=== PATIENT | female | born 1930 | race Caucasian/White ===

== ENCOUNTER → 2019-08-20 | Outpatient (CLI) | payer MEDICARE, BC ==
--- NOTE | 2019-08-20 15:42 | US ---
EXAMINATION TYPE: US venous doppler duplex LE LT DATE OF EXAM: 08/20/2019 3:32 PM COMPARISON: NONE CLINICAL HISTORY: R60.0 EDEMA. Left leg pain and swelling x 1 week SIDE PERFORMED: Left TECHNIQUE: The lower extremity deep venous system is examined utilizing real time linear array sonog yarely with graded compression, doppler sonography and color-flow sonography. VESSELS IMAGED: External Iliac Vein (EIV) Common Femoral Vein Deep Femoral Vein Greater Saphenous Vein * Femoral Vein Popliteal Vein Small Saphenous Vein * Proximal Calf Veins (* superficial vessels) Grayscale, color doppler, spectral doppler imaging performed of the deep veins of the left lower extr emity. There is normal flow, compressibility, vascular waveforms. Left Leg: Appears negative for DVT IMPRESSION: No sonographic evidence of deep venous thrombosis within the left lower extremity.
[2019-08-20 16:43] LABS: Albumin 4.5 g/dL (3.5-5.0); Potassium 5.5 mmol/L (3.5-5.1); Total Bilirubin 0.3 mg/dL (0.2-1.3); Total Protein 8.3 g/dL (6.3-8.2); Uric Acid 5.6 mg/dL (3.7-7.4)
[2019-08-20 19:04] LABS: Basophils # (A) 0.2 k/uL (0-0.2); Basophils % (A) 3 %; Eosinophils # (A) 0.1 k/uL (0-0.7); Eosinophils % (A) 2 %; HCT 36.5 % (34.0-46.0); HGB 11.2 gm/dL (11.4-16.0); Lymphocytes # (A) 1.3 k/uL (1.0-4.8); Lymphocytes % (A) 17 %; MCH 30.1 pg (25.0-35.0); MCHC 30.7 g/dL (31.0-37.0); MCV 98.1 fL (80.0-100.0); Monocytes # (A) 0.7 k/uL (0-1.0); Monocytes % (A) 9 %; Neutrophils # (A) 5.1 k/uL (1.3-7.7); Neutrophils % (A) 68 %; Platelet Count 252 k/uL (150-450); RBC 3.73 m/uL (3.80-5.40); RDW 13.9 % (11.5-15.5); WBC 7.5 k/uL (3.8-10.6)
== END | disposition home or self-care (01) ==
LOC: RADUSWWP 14:48
PROVIDERS: ATTEND Family Medicine
DX: R60.0 Localized edema (principal)
CPT/HCPCS: 80053; 83880; 84550; 85025

== ENCOUNTER → 2019-10-03 | Outpatient (CLI) | payer MEDICARE, BC ==
[2019-10-03 09:14] LABS: Basophils % (A) 1 %; Eosinophils # (A) 0.2 k/uL (0-0.7); Eosinophils % (A) 3 %; HCT 37.6 % (34.0-46.0); HGB 12.3 gm/dL (11.4-16.0); Lymphocytes # (A) 1.6 k/uL (1.0-4.8); Lymphocytes % (A) 24 %; MCH 31.5 pg (25.0-35.0); MCHC 32.6 g/dL (31.0-37.0); MCV 96.6 fL (80.0-100.0); Mean Platelet Volume 6.7; Monocytes # (A) 0.5 k/uL (0-1.0); Monocytes % (A) 7 %; Neutrophils # (A) 4.2 k/uL (1.3-7.7); Neutrophils % (A) 63 %; Platelet Count 273 k/uL (150-450); RDW 13.7 % (11.5-15.5); WBC 6.7 k/uL (3.8-10.6)
[2019-10-03 09:30] LABS: Appearance,Urine Clear (Clear); Bilirubin,Urine Negative (Negative); Blood,Urine Negative (Negative); Color,Urine Light Yellow; Glucose,Urine (UA) Negative (Negative); Ketones,Urine Negative (Negative); Leukocyte Esterase,Urine Moderate (Negative); Nitrite,Urine Negative (Negative); Protein,Urine Negative (Negative); RBC,Urine 1 /hpf (0-5); Specific Gravity,Urine 1.007 (1.001-1.035); Urobilinogen,Urine <2.0 mg/dL (<2.0); WBC,Urine 18 /hpf (0-5)
[2019-10-03 17:23] LABS: % Iron Saturation 31.79 (12.00-45.00); African American GFR (CKD) 35.9 (60.0-200.0); Albumin 4.4 g/dL (3.80-4.90); Albumin/Globulin Ratio 1.57 (1.60-3.17); Anion Gap 7.3 mmol/L (4.00-12.00); Calcium 9.9 mg/dL (8.7-10.3); Carbon Dioxide 28.7 mmol/L (21.6-31.8); Chol/HDL Ratio 2.45; Globulin 2.8 g/dL (1.6-3.3); LDL Cholesterol,Calculated 68.2 mg/dL (0.0-131.0); Magnesium 1.9 mg/dL (1.5-2.4); Phosphorus 4.1 mg/dL (2.4-5.1); Total Bilirubin 0.5 mg/dL (0.3-1.2); Total Protein 7.2 g/dL (6.2-8.2); Uric Acid 6.1 mg/dL (2.9-7.7); VLDL Calculation 25.8 mg/dL (5.00-40.00)
[2019-10-03 17:35] LABS: Ferritin 486.4 ng/mL (10.0-291.0)
== END | disposition home or self-care (01) ==
LOC: LABWHC1 08:00
PROVIDERS: ATTEND Nurse Practitioner Family
DX: E78.2 Mixed hyperlipidemia (principal); E11.42 Type 2 diabetes mellitus with diabetic polyneuropathy; R79.89 Other specified abnormal findings of blood chemistry; E03.9 Hypothyroidism, unspecified; D63.1 Anemia in chronic kidney disease; N18.3 Chronic kidney disease, stage 3 (moderate); M10.9 Gout, unspecified; E55.9 Vitamin D deficiency, unspecified
CPT/HCPCS: 36415; 80053; 80061; 81001; 82306; 82728; 83540; 83550; 83735; 83970; 84100; 84443; 84550; 85025

== ENCOUNTER 2020-07-23 15:18 | Emergency (ER) | payer MEDICARE, BC ==
[2020-07-23 15:25] VITALS: RESP 16; TEMP 97
[2020-07-23] MEDS ORDERED: SODIUM CHLORIDE 0.9% 500 ML 500 ML IV STA (15:55)
--- NOTE | 2020-07-23 16:23 | ED ---
General Adult HPI - General Chief complaint: Weakness Stated complaint: Weakness Time Seen by Provider: 07/23/20 15:34 Source: patient, EMS, RN notes reviewed, old records reviewed Mode of arrival: EMS Limitations: no limitations - History of Present Illness Initial comments: 89-year-old female presents with generalized weakness, syncope. Patient was at home, she states she felt unwell, unable to exactly explain these details. Denied chest pain. Denied dyspnea. She states she did fall and was unconscious for several minutes. She had loss of bowel control at this time. There was no witnessed seizure activity. She was not postictal. She denies any complaints the time my evaluation. She states she is feeling better. She reported some mild preceding crampy abdominal pain. No fever. No cough. No dyspnea. - Related Data Home Medications Medication Instructions Recorded Confirmed Atorvastatin Calcium [Lipitor] 10/05/15 10/05/15 Biotin 10/05/15 10/05/15 Calcium Carbonate [Calcium] 10/05/15 10/05/15 Gabapentin [Neurontin] 10/05/15 10/05/15 Lactobacillus Acidophilus 10/05/15 10/05/15 [Acidophilus] Multivitamins, Thera [Multivitamin] 10/05/15 10/05/15 Omeprazole [PriLOSEC] 10/05/15 10/05/15 Thyroid, Pork [[place] Thyroid] 10/05/15 10/05/15 lisinopriL [Zestril] 10/05/15 10/05/15 metFORMIN HCL [Glucophage] 10/05/15 10/05/15 Allergies Allergy/AdvReac Type Severity Reaction Status Date / Time sulfadiazine Allergy Mild Unknown Verified 10/05/15 00:31 Review of Systems ROS Statement: Those systems with pertinent positive or pertinent negative responses have been documented in the HPI. ROS Other: All systems not noted in ROS Statement are negative. Past Medical History Past Medical History: Diabetes Mellitus, GERD/Reflux, Hypertension History of Any Multi-Drug Resistant Organisms: None Reported Past Surgical History: No Surgical Hx Reported Past Psychological History: No Psychological Hx Reported Smoking Status: Never smoker Past Alcohol Use History: Occasional Past Drug Use History: None Reported General Exam Limitations: no limitations General appearance: alert, in no apparent distress Head exam: Present: atraumatic, normocephalic Eye exam: Present: normal appearance, PERRL ENT exam: Present: mucous membranes dry Neck exam: Present: normal inspection. Absent: tenderness, meningismus Respiratory exam: Present: normal lung sounds bilaterally. Absent: respiratory distress, wheezes Cardiovascular Exam: Present: regular rate, normal rhythm GI/Abdominal exam: Present: soft. Absent: distended, tenderness, guarding Extremities exam: Present: normal inspection, normal capillary refill. Absent: pedal edema Neurological exam: Present: alert, oriented X3, CN II-XII intact. Absent: motor sensory deficit Psychiatric exam: Present: normal affect, normal mood Skin exam: Present: warm, dry, intact. Absent: cyanosis, diaphoretic Course Vital Signs 07/23/20 07/23/20 15:19 17:52 Temperature 97.0 F L Pulse Rate 72 87 Respiratory 16 16 Rate Blood Pressure 143/63 137/81 O2 Sat by Pulse 98 99 Oximetry EKG Findings - EKG Comments: EKG Findings:: EKG: Sinus rhythm with first-degree AV block, QRS is wide, nonspecific intraventricular block, rate of 66, CO interval 212, QRS duration 12 6, QTC 434, no ST segment elevation, ST segment depression in V6 and this EKG is unchanged compared to EKG October 2015. Medical Decision Making - Medical Decision Making 89-year-old female presenting with syncopal episode. Patient's is in sinus rhythm. Initial blood pressure stable. She has a nonfocal neurologic exam, no external signs of trauma. Workup was initiated, she has a chest x-ray which is negative for acute cortical varices, x-ray of the abdomen negative for obstruction or intraperitoneal free air. She has mild hyperkalemia 5.6, elevated serum creatinine 1.27. Troponin negative. Urinalysis is pending, has not been collected at this time. I did prefer that this patient be admitted for telemetry, hydration, repeat electrolytes, she does not want to stay in the hospital at this time. Her son who is in the room agrees that she would prefer to be discharged home and will monitor closely at home. She will drink plenty fluids. She will follow-up on Saturday with her traffic attendant for repeat laboratory testing. The EKG is changed from prior although there is no recent for comparison most recent was in 2014. Again my preference would be that the patient stays but she wishes to be discharged. - Lab Data Result diagrams: 07/23/20 16:01 07/23/20 16:01 Lab Results 07/23/20 07/23/20 07/23/20 Range/Units 16: 16: 16:01 WBC 10.4 (3.8-10.6) k/uL RBC 3.98 (3.80-5.40) m/uL Hgb 12.1 (11.4-16.0) gm/dL Hct 38.5 (34.0-46.0) % MCV 96.8 (80.0-100.0) fL MCH 30.3 (25.0-35.0) pg MCHC 31.3 (31.0-37.0) g/dL RDW 13.6 (11.5-15.5) % Plt Count 288 (150-450) k/uL Neutrophils % 80 % Lymphocytes % 11 % Monocytes % 8 % Eosinophils % 1 % Basophils % 0 % Neutrophils # 8.3 H (1.3-7.7) k/uL Lymphocytes # 1.1 (1.0-4.8) k/uL Monocytes # 0.8 (0-1.0) k/uL Eosinophils # 0.1 (0-0.7) k/uL Basophils # 0.0 (0-0.2) k/uL PT 9.8 (9.0-12.0) sec INR 0.9 (<1.2) APTT 22.0 (22.0-30.0) sec Sodium 130 L (137-145) mmol/L Potassium 5.6 H (3.5-5.1) mmol/L Chloride 98 (98-107) mmol/L Carbon Dioxide 25 (22-30) mmol/L Anion Gap 7 mmol/L BUN 32 H (7-17) mg/dL Creatinine 1.27 H (0.52-1.04) mg/dL Est GFR (CKD-EPI)AfAm 44 (>60 ml/min/1.73 sqM) Est GFR (CKD-EPI)NonAf 38 (>60 ml/min/1.73 sqM) Glucose 231 H (74-99) mg/dL Calcium 9.1 (8.4-10.2) mg/dL Magnesium 2.0 (1.6-2.3) mg/dL Total Bilirubin 0.4 (0.2-1.3) mg/dL AST 31 (14-36) U/L ALT 27 (4-34) U/L Alkaline Phosphatase 84 (38-126) U/L Troponin I (0.000-0.034) ng/mL Total Protein 7.0 (6.3-8.2) g/dL Albumin 4.0 (3.5-5.0) g/dL 07/23/20 Range/Units 16:01 WBC (3.8-10.6) k/uL RBC (3.80-5.40) m/uL Hgb (11.4-16.0) gm/dL Hct (34.0-46.0) % MCV (80.0-100.0) fL MCH (25.0-35.0) pg MCHC (31.0-37.0) g/dL RDW (11.5-15.5) % Plt Count (150-450) k/uL Neutrophils % % Lymphocytes % % Monocytes % % Eosinophils % % Basophils % % Neutrophils # (1.3-7.7) k/uL Lymphocytes # (1.0-4.8) k/uL Monocytes # (0-1.0) k/uL Eosinophils # (0-0.7) k/uL Basophils # (0-0.2) k/uL PT (9.0-12.0) sec INR (<1.2) APTT (22.0-30.0) sec Sodium (137-145) mmol/L Potassium (3.5-5.1) mmol/L Chloride (98-107) mmol/L Carbon Dioxide (22-30) mmol/L Anion Gap mmol/L BUN (7-17) mg/dL Creatinine (0.52-1.04) mg/dL Est GFR (CKD-EPI)AfAm (>60 ml/min/1.73 sqM) Est GFR (CKD-EPI)NonAf (>60 ml/min/1.73 sqM) Glucose (74-99) mg/dL Calcium (8.4-10.2) mg/dL Magnesium (1.6-2.3) mg/dL Total Bilirubin (0.2-1.3) mg/dL AST (14-36) U/L ALT (4-34) U/L Alkaline Phosphatase (38-126) U/L Troponin I <0.012 (0.000-0.034) ng/mL Total Protein (6.3-8.2) g/dL Albumin (3.5-5.0) g/dL Disposition Clinical Impression: Hyponatremia, Dehydration, Hyperkalemia Disposition: ADMITTED IP TO THIS [facility] Condition: Stable Instructions (If sedation given, give patient instructions): Dehydration (ED), Hyperkalemia (ED) Is patient prescribed a controlled substance at d/c from ED?: No Referrals: Rissa Collier III, MD [Primary Care Provider] - 1-2 days Flaca Villegas MD [STAFF PHYSICIAN] - 1-2 days Time of Disposition: 17:55 Decision to Admit Reason: Admit from EC Decision Date: 07/23/20 Decision Time: 17:48
[2020-07-23 16:24] LABS: Basophils % (A) 0 %; Eosinophils # (A) 0.1 k/uL (0-0.7); Eosinophils % (A) 1 %; HCT 38.5 % (34.0-46.0); HGB 12.1 gm/dL (11.4-16.0); Lymphocytes # (A) 1.1 k/uL (1.0-4.8); Lymphocytes % (A) 11 %; MCH 30.3 pg (25.0-35.0); MCHC 31.3 g/dL (31.0-37.0); MCV 96.8 fL (80.0-100.0); Monocytes # (A) 0.8 k/uL (0-1.0); Monocytes % (A) 8 %; Neutrophils # (A) 8.3 k/uL (1.3-7.7); Neutrophils % (A) 80 %; Platelet Count 288 k/uL (150-450); RBC 3.98 m/uL (3.80-5.40); RDW 13.6 % (11.5-15.5); WBC 10.4 k/uL (3.8-10.6)
[2020-07-23 16:30] LABS: Calcium 9.1 mg/dL (8.4-10.2); Potassium 5.6 mmol/L (3.5-5.1); Total Bilirubin 0.4 mg/dL (0.2-1.3)
[2020-07-23 16:40] LABS: INR 0.9 (<1.2); Prothrombin Time 9.8 sec (9.0-12.0)
[2020-07-23] MEDS ORDERED: SODIUM CHLORIDE 0.9% 1,000 ML IV SCH (16:45)
--- NOTE | 2020-07-23 16:55 | XR ---
EXAMINATION TYPE: XR chest 2V DATE OF EXAM: 07/23/2020 COMPARISON: Chest x-ray November 24, 2013 HISTORY: Syncope and weakness. TECHNIQUE: Frontal and lateral views of the chest are obtained. FINDINGS: There is background chronic parenchymal change without suspicious new focal air space opac ity, pleural effusion, or pneumothorax seen. The cardiac silhouette size is stable and mildly enlarg ed. The osseous structures are demineralized. IMPRESSION: Chronic changes and mild cardiomegaly without acute pulmonary process. No significant ch arsalan from prior.
--- NOTE | 2020-07-23 16:56 | XR ---
EXAMINATION TYPE: XR KUB DATE OF EXAM: 07/23/2020 4:37 PM CLINICAL HISTORY: Abdominal pain and syncope. TECHNIQUE: Two supine KUB images of the abdomen are obtained. COMPARISON: Abdominal x-ray fibroid 23/06/2014. FINDINGS: Scattered gas is seen in non-distended small and large bowel loops. Calcified fibroid right pelvis redemonstrated. Spurring in the upper lumbar spine again seen. Lung bases not included. IMPRESSION: Persistent overall nonobstructive bowel gas pattern.
[2020-07-23 18:18] VITALS: BP 123/85; PULSE 86
== END 2020-07-23 18:16 | disposition other institution (70) ==
LOC: EC 15:18
DX: E87.1 Hypo-osmolality and hyponatremia (principal); E86.0 Dehydration; E87.5 Hyperkalemia; R55 Syncope and collapse; R79.89 Other specified abnormal findings of blood chemistry; I10 Essential (primary) hypertension; E11.9 Type 2 diabetes mellitus without complications; K21.9 Gastro-esophageal reflux disease without esophagitis; Z79.84 Long term (current) use of oral hypoglycemic drugs; Z79.899 Other long term (current) drug therapy; Z79.890 Hormone replacement therapy; Z88.2 Allergy status to sulfonamides
CPT/HCPCS: 36415; 71046; 74018; 80053; 83735; 84484; 85025; 85610; 85730; 93005; 96360; 99285

== ENCOUNTER 2020-09-14 11:28 | Emergency (ER) | payer MEDICARE, BC ==
[2020-09-14 11:36] VITALS: TEMP 98.1
[2020-09-14] MEDS ORDERED: SODIUM CHLORIDE 0.9% 1,000 ML IV STA (12:52)
[2020-09-14] MEDS ORDERED: SODIUM CHLORIDE 0.9% 500 ML 500 ML IV STA ×2 (12:52→14:20)
--- NOTE | 2020-09-14 12:55 | ED ---
Weakness HPI - General Chief complaint: Weakness Stated complaint: fatigue/blurred vision/dizziness Time Seen by Provider: 09/14/20 12:35 Source: patient, RN notes reviewed Mode of arrival: ambulatory Limitations: no limitations - History of Present Illness Initial comments: This is a 10-year-old female history of type 2 diabetes and peripheral neuropathy of unknown etiology who is here today with complaints of generalized weakness and fatigue she feels sleepy and tired all time he does also decreased oral intake. But she denies any fevers chills nausea vomiting sweats cough or phlegm production. She has been getting immunotherapy at her neurologist's office. She complains also some right-sided neck pain but this is chronic and preceded getting the immunotherapy. No focal weakness she does have at my exam no complaints of headache. MD Complaint: generalized weakness - Related Data Home Medications Medication Instructions Recorded Confirmed Atorvastatin Calcium [Lipitor] 1 tab PO DAILY 10/05/15 09/14/20 Omeprazole [PriLOSEC] 20 mg PO DAILY 10/05/15 09/14/20 lisinopriL [Zestril] 2.5 mg PO Q48H 10/05/15 09/14/20 Allopurinol [Zyloprim] 100 mg PO DAILY 09/06/20 09/14/20 Ferrous Sulfate [Iron] 325 mg PO DAILY 09/06/20 09/14/20 Gabapentin [Neurontin] 800 mg PO TID 09/06/20 09/14/20 Latanoprost/Pf [Latanoprost 0.005% 1 drop BOTH EYES HS 09/06/20 09/14/20 Eye Drop] Levothyroxine Sodium [Levoxyl] 75 mcg PO DAILY 09/06/20 09/14/20 Magnesium Oxide [Mag-Ox] 500 mg PO DAILY 09/06/20 09/14/20 Multivit-Min/FA/Lycopen/Lutein 1 tab PO DAILY 09/06/20 09/14/20 [Centrum Silver Tablet] glipiZIDE [Glucotrol] 0.5 tab PO DAILY 09/06/20 09/14/20 Focus Macular Pro 1 tab PO DAILY 09/14/20 09/14/20 Allergies Allergy/AdvReac Type Severity Reaction Status Date / Time sulfadiazine Allergy Mild Unknown Verified 09/14/20 13:31 Sulfa (Sulfonamide Allergy Unknown Verified 09/14/20 13:31 Antibiotics) Review of Systems ROS Statement: Those systems with pertinent positive or pertinent negative responses have been documented in the HPI. ROS Other: All systems not noted in ROS Statement are negative. Past Medical History Past Medical History: Diabetes Mellitus, GERD/Reflux, Hypertension History of Any Multi-Drug Resistant Organisms: None Reported Past Surgical History: No Surgical Hx Reported Past Psychological History: No Psychological Hx Reported Smoking Status: Former smoker Past Alcohol Use History: None Reported Past Drug Use History: None Reported General Exam - General Exam Comments Initial Comments: this is a well-developed asthenic appearing female who is awake alert oriented 3 Limitations: no limitations General appearance: alert, in no apparent distress Head exam: Present: atraumatic, normocephalic, normal inspection Eye exam: Present: normal appearance, PERRL, EOMI. Absent: scleral icterus, conjunctival injection, periorbital swelling ENT exam: Present: mucous membranes dry Neck exam: Present: normal inspection, tenderness, full ROM, other (no stridor JVD or bruits there is some slight tenderness palpation over the posterior lateral aspect of the right side of the neck over the trapezius muscle no midline tenderness no step-off no crepitation). Absent: meningismus, lymphadenopathy Respiratory exam: Present: normal lung sounds bilaterally. Absent: respiratory distress, wheezes, rales, rhonchi, stridor Cardiovascular Exam: Present: regular rate, normal rhythm, normal heart sounds. Absent: systolic murmur, diastolic murmur, rubs, gallop, clicks GI/Abdominal exam: Present: soft, normal bowel sounds. Absent: distended, tenderness, guarding, rebound, rigid, bruit, pulsatile mass Extremities exam: Present: normal inspection, full ROM, normal capillary refill. Absent: tenderness, pedal edema, joint swelling, calf tenderness Back exam: Present: normal inspection Neurological exam: Present: alert, oriented X3, CN II-XII intact Psychiatric exam: Present: normal affect, normal mood Skin exam: Present: warm, dry, intact, normal color. Absent: rash Course Vital Signs 09/14/20 09/14/20 11:30 15:42 Temperature 98.1 F Pulse Rate 80 77 Respiratory 18 20 Rate Blood Pressure 173/72 O2 Sat by Pulse 100 98 Oximetry - Reevaluation(s) Reevaluation #1: 09/14/20 16:24 Reevaluation the patient feels improved after IV hydration. EKG Findings - EKG Results: EKG: interpreted by ELIJAHD, sinus rhythm (sinus rhythm of 74. Interval 206 QRS duration 122 QT since QTC 384/426 bundle-branch block pattern) Medical Decision Making - Medical Decision Making patient was able ambulate without difficulty she feels improved after hydration she'll be discharged the presentation is consistent with dehydrationdoes them straight some mild hyponatremia. She is a follow-up with her doctor return when necessary - Lab Data Result diagrams: 09/14/20 12:57 09/14/20 12:57 Lab Results 09/14/20 09/14/20 09/14/20 Range/Units 12:57 12:57 12:57 WBC 7.2 (3.8-10.6) k/uL RBC 3.27 L (3.80-5.40) m/uL Hgb 10.8 L (11.4-16.0) gm/dL Hct 29.5 L (34.0-46.0) % MCV 90.4 D (80.0-100.0) fL MCH 32.9 (25.0-35.0) pg MCHC 36.4 (31.0-37.0) g/dL RDW 14.5 (11.5-15.5) % Plt Count 225 (150-450) k/uL MPV 7.5 Neutrophils % 67 % Lymphocytes % 18 % Monocytes % 13 % Eosinophils % 1 % Basophils % 1 % Neutrophils # 4.8 (1.3-7.7) k/uL Lymphocytes # 1.3 (1.0-4.8) k/uL Monocytes # 0.9 (0-1.0) k/uL Eosinophils # 0.0 (0-0.7) k/uL Basophils # 0.1 (0-0.2) k/uL Hyperchromasia Slight Poikilocytosis Slight Sodium 128 L (137-145) mmol/L Potassium 5.3 H (3.5-5.1) mmol/L Chloride 95 L (98-107) mmol/L Carbon Dioxide 25 (22-30) mmol/L Anion Gap 8 mmol/L BUN 36 H (7-17) mg/dL Creatinine 1.29 H (0.52-1.04) mg/dL Est GFR (CKD-EPI)AfAm 43 (>60 ml/min/1.73 sqM) Est GFR (CKD-EPI)NonAf 37 (>60 ml/min/1.73 sqM) Glucose 146 H (74-99) mg/dL Plasma Lactic Acid Franky 1.1 (0.7-2.0) mmol/L Calcium 9.7 (8.4-10.2) mg/dL Magnesium 2.0 (1.6-2.3) mg/dL Total Bilirubin 1.1 (0.2-1.3) mg/dL AST 49 H (14-36) U/L ALT 37 H (4-34) U/L Alkaline Phosphatase 106 (38-126) U/L Creatine Kinase 52 (30-135) U/L Troponin I (0.000-0.034) ng/mL NT-Pro-B Natriuret Pep pg/mL Total Protein 9.6 H (6.3-8.2) g/dL Albumin 4.4 (3.5-5.0) g/dL Lipase 214 (23-300) U/L TSH 1.100 (0.465-4.680) mIU/L Urine Color Urine Appearance (Clear) Urine pH (5.0-8.0) Ur Specific [place] (1.001-1.035) Urine Protein (Negative) Urine Glucose (UA) (Negative) Urine Ketones (Negative) Urine Blood (Negative) Urine Nitrite (Negative) Urine Bilirubin (Negative) Urine Urobilinogen (<2.0) mg/dL Ur Leukocyte Esterase (Negative) Urine RBC (0-5) /hpf Urine WBC (0-5) /hpf Urine Bacteria (None) /hpf Urine Mucus (None) /hpf 09/14/20 09/14/20 09/14/20 Range/Units 12:57 12:57 12:57 WBC (3.8-10.6) k/uL RBC (3.80-5.40) m/uL Hgb (11.4-16.0) gm/dL Hct (34.0-46.0) % MCV (80.0-100.0) fL MCH (25.0-35.0) pg MCHC (31.0-37.0) g/dL RDW (11.5-15.5) % Plt Count (150-450) k/uL MPV Neutrophils % % Lymphocytes % % Monocytes % % Eosinophils % % Basophils % % Neutrophils # (1.3-7.7) k/uL Lymphocytes # (1.0-4.8) k/uL Monocytes # (0-1.0) k/uL Eosinophils # (0-0.7) k/uL Basophils # (0-0.2) k/uL Hyperchromasia Poikilocytosis Sodium (137-145) mmol/L Potassium (3.5-5.1) mmol/L Chloride (98-107) mmol/L Carbon Dioxide (22-30) mmol/L Anion Gap mmol/L BUN (7-17) mg/dL Creatinine (0.52-1.04) mg/dL Est GFR (CKD-EPI)AfAm (>60 ml/min/1.73 sqM) Est GFR (CKD-EPI)NonAf (>60 ml/min/1.73 sqM) Glucose (74-99) mg/dL Plasma Lactic Acid Franky (0.7-2.0) mmol/L Calcium (8.4-10.2) mg/dL Magnesium (1.6-2.3) mg/dL Total Bilirubin (0.2-1.3) mg/dL AST (14-36) U/L ALT (4-34) U/L Alkaline Phosphatase (38-126) U/L Creatine Kinase (30-135) U/L Troponin I <0.012 (0.000-0.034) ng/mL NT-Pro-B Natriuret Pep 108 pg/mL Total Protein (6.3-8.2) g/dL Albumin (3.5-5.0) g/dL Lipase (23-300) U/L TSH (0.465-4.680) mIU/L Urine Color Light Yellow Urine Appearance Clear (Clear) Urine pH 5.5 (5.0-8.0) Ur Specific [place] 1.008 (1.001-1.035) Urine Protein Negative (Negative) Urine Glucose (UA) Negative (Negative) Urine Ketones Negative (Negative) Urine Blood Negative (Negative) Urine Nitrite Negative (Negative) Urine Bilirubin Negative (Negative) Urine Urobilinogen <2.0 (<2.0) mg/dL Ur Leukocyte Esterase Large H (Negative) Urine RBC <1 (0-5) /hpf Urine WBC 21 H (0-5) /hpf Urine Bacteria Occasional H (None) /hpf Urine Mucus Rare H (None) /hpf - Radiology Data Radiology results: report reviewed, image reviewed (maging reviewed no acute findings.) Disposition Clinical Impression: Dehydration, History of peripheral neuropathy Disposition: HOME SELF-CARE Condition: Good Instructions (If sedation given, give patient instructions): Dehydration (ED) Is patient prescribed a controlled substance at d/c from ED?: No Referrals: Rissa Collier III, MD [Primary Care Provider] - 1-2 days
[2020-09-14 13:22] LABS: Albumin 4.4 g/dL (3.5-5.0); Calcium 9.7 mg/dL (8.4-10.2); Potassium 5.3 mmol/L (3.5-5.1); Total Bilirubin 1.1 mg/dL (0.2-1.3); Total Protein 9.6 g/dL (6.3-8.2)
[2020-09-14 13:29] LABS: Appearance,Urine Clear (Clear); Bacteria,Urine Occasional /hpf; Bilirubin,Urine Negative (Negative); Blood,Urine Negative (Negative); Color,Urine Light Yellow; Glucose,Urine (UA) Negative (Negative); Ketones,Urine Negative (Negative); Leukocyte Esterase,Urine Large (Negative); Mucus,Urine Rare /hpf; Nitrite,Urine Negative (Negative); PH, Urine 5.5 (5.0-8.0); Protein,Urine Negative (Negative); RBC,Urine <1 /hpf (0-5); Specific Gravity,Urine 1.008 (1.001-1.035); Urobilinogen,Urine <2.0 mg/dL (<2.0); WBC,Urine 21 /hpf (0-5)
--- NOTE | 2020-09-14 13:31 | XR ---
EXAMINATION TYPE: XR chest 2V DATE OF EXAM: 09/14/2020 COMPARISON: 07/23/2020 HISTORY: 89-year-old female with weakness TECHNIQUE: PA and lateral views FINDINGS: Heart normal size. Aorta and pulmonary vasculature within normal limits. Diffuse interstitial density and were prior exam. Hyperinflation flattening of the diaphragms. No new consolidation or pleural ef fusion seen. IMPRESSION: COPD. Interstitial densities appear largely chronic, unchanged from 07/23/2020. No definite acute proc ess.
[2020-09-14 13:59] LABS: Basophils # (A) 0.1 k/uL (0-0.2); Basophils % (A) 1 %; Eosinophils % (A) 1 %; HCT 29.5 % (34.0-46.0); HGB 10.8 gm/dL (11.4-16.0); Hyperchromasia Slight; Lymphocytes # (A) 1.3 k/uL (1.0-4.8); Lymphocytes % (A) 18 %; MCH 32.9 pg (25.0-35.0); MCHC 36.4 g/dL (31.0-37.0); Mean Platelet Volume 7.5; Monocytes # (A) 0.9 k/uL (0-1.0); Monocytes % (A) 13 %; Neutrophils # (A) 4.8 k/uL (1.3-7.7); Neutrophils % (A) 67 %; Platelet Count 225 k/uL (150-450); Poikilocytosis Slight; RBC 3.27 m/uL (3.80-5.40); RDW 14.5 % (11.5-15.5); WBC 7.2 k/uL (3.8-10.6)
[2020-09-14 14:02] LABS: MCV 90.4 fL (80.0-100.0)
[2020-09-14 16:44] VITALS: BP 180/84; PULSE 72; RESP 18
== END 2020-09-14 16:34 | disposition home or self-care (01) ==
LOC: EC 11:28
DX: E86.0 Dehydration (principal); M54.2 Cervicalgia; E11.40 Type 2 diabetes mellitus with diabetic neuropathy, unspecified; K21.9 Gastro-esophageal reflux disease without esophagitis; I10 Essential (primary) hypertension; Z79.84 Long term (current) use of oral hypoglycemic drugs; Z79.899 Other long term (current) drug therapy; Z88.2 Allergy status to sulfonamides; Z87.891 Personal history of nicotine dependence
CPT/HCPCS: 36415; 71046; 80053; 81001; 82550; 83605; 83690; 83735; 83880; 84443; 84484; 85025; 87086; 93005; 96360; 96361; 99285